=== PATIENT | male | born 1940 | race Caucasian/White ===

== ENCOUNTER 2021-08-13 08:34 | Inpatient (IN) | payer MEDICARE, OTHER ==
[~2021-08-13] VITALS: Ht 175.3 cm; Wt 72.6 kg
[2021-08-13 09:36] LABS: HEMOGLOBIN 14.5 gm/dl (14.0-17.5); RED BLOOD COUNT 4.34 M/UL (4.20-5.50); WHITE BLOOD COUNT 17.2 K/UL (4.5-11.0)
[2021-08-13 10:33] LABS: BUN/CREATININE RATIO 26 (0-10)
[2021-08-13] MEDS ORDERED: AMLODIPINE BESY10 MG PO (13:42)
[2021-08-13] MEDS ORDERED: ZOCOR40 MG PO (13:43)
[2021-08-13] MEDS ORDERED: COREG6.25 MG PO (13:43)
[2021-08-13] MEDS ORDERED: HYDROCHLOROTHIA25 MG PO (13:43)
[2021-08-13] MEDS ORDERED: LOSARTAN POTAS100 MG PO (13:44)
[2021-08-13] MEDS ORDERED: FLOMAX 0.4 MG0.4 MG PO (13:45)
[2021-08-13] MEDS ORDERED: FINASTERIDE5 MG PO (13:45)
[2021-08-13] MEDS ORDERED: VITAMIN A2400 MCG PO (13:46)
[2021-08-13] MEDS ORDERED: LATANOPROST2.5 ML OU (13:46)
[2021-08-13] MEDS ORDERED: FISH OIL 500 M1 EAC1 PO (13:46)
[2021-08-13] MEDS ORDERED: SUPER BETA PROSTATE PO (13:47)
[2021-08-14 07:12] LABS: HEMOGLOBIN 13.5 gm/dl (14.0-17.5); RED BLOOD COUNT 4.11 M/UL (4.20-5.50); WHITE BLOOD COUNT 15.3 K/UL (4.5-11.0)
[2021-08-14 07:30] LABS: BUN/CREATININE RATIO 22 (0-10)
[2021-08-15 07:03] LABS: HEMOGLOBIN 13.1 gm/dl (14.0-17.5); RED BLOOD COUNT 3.91 M/UL (4.20-5.50); WHITE BLOOD COUNT 12.8 K/UL (4.5-11.0)
[2021-08-15 07:44] LABS: BUN/CREATININE RATIO 16 (0-10)
[2021-08-16 07:05] LABS: HEMOGLOBIN 12.5 gm/dl (14.0-17.5); RED BLOOD COUNT 3.81 M/UL (4.20-5.50)
[2021-08-16 07:38] LABS: BUN/CREATININE RATIO 17 (0-10)
[2021-08-16] MEDS ORDERED: AZITHROMYCIN500 MG PO (12:04)
[2021-08-16] MEDS ORDERED: AUGMENTIN 875-1 EACH PO (12:04)
[2021-08-16] MEDS ORDERED: ASPIRIN EC81 MG PO (12:04)
[2021-08-17] MEDS ORDERED: AZITHROMYCIN500 MG PO (09:13)
[2021-08-17] MEDS ORDERED: AUGMENTIN 875-1 EACH PO (09:13)
== END 2021-08-17 15:08 | disposition home or self-care (01) | DRG 871 ==
LOC: ER1 08:34 → CDU 13:23 → MED SURG 4 13:23
PROVIDERS: Emergency Medicine; Physician Assistant; Physician Assistant Medical; ADMIT Internal Medicine
DX: A41.9 Sepsis, unspecified organism (principal); J69.0 Pneumonitis due to inhalation of food and vomit; J18.9 Pneumonia, unspecified organism; J96.01 Acute respiratory failure with hypoxia; E87.1 Hypo-osmolality and hyponatremia; Z20.822 Contact with and (suspected) exposure to COVID-19; J98.11 Atelectasis; R91.1 Solitary pulmonary nodule; I65.22 Occlusion and stenosis of left carotid artery; I25.10 Atherosclerotic heart disease of native coronary artery without angina pectoris; I10 Essential (primary) hypertension; E78.5 Hyperlipidemia, unspecified; D18.03 Hemangioma of intra-abdominal structures; T50.2X5A Adverse effect of carbonic-anhydrase inhibitors, benzothiadiazides and other diuretics, initial encounter; Z79.82 Long term (current) use of aspirin; Z95.5 Presence of coronary angioplasty implant and graft; Z98.890 Other specified postprocedural states; Z95.1 Presence of aortocoronary bypass graft; Z82.49 Family history of ischemic heart disease and other diseases of the circulatory system; Z90.49 Acquired absence of other specified parts of digestive tract; Z79.899 Other long term (current) drug therapy
CPT/HCPCS: 36415; 71045; 71046; 80048; 80053; 81001; 82550; 82553; 83605; 83735; 83874; 83880; 84132; 84484; 85025; 85027; 87040; 87070; 87086; 87205; 92610; 93005; 94640; 94664; 94760; 96374; 97161; 99285; J0295; J0456; J0696; J1650; J2405; J7030; Q9967; U0002